=== PATIENT | female | born 1980 | race Caucasian/White ===

== ENCOUNTER → 2017-09-15 | Outpatient (CLI) | payer BC | END | disposition home or self-care (01) | LOC: KCIC MRI 07:46 | DX: M76.891 Other specified enthesopathies of right lower limb, excluding foot (principal) | CPT/HCPCS: 73721 ==

== ENCOUNTER → 2017-11-11 | Outpatient (CLI) | payer BC ==
[2017-11-11] MEDS: GADOBUTROL 7.5 MMOL/7.5 ML VIAL IV (11:10)
== END | disposition home or self-care (01) ==
LOC: KCIC MRI 09:20
DX: M48.02 Spinal stenosis, cervical region (principal); M51.24 Other intervertebral disc displacement, thoracic region
CPT/HCPCS: 70553; 72141; 72146; A9585

== ENCOUNTER → 2018-09-28 | Outpatient (CLI) | payer BC ==
[~2018-09-28] MED LIST: CETI10TA22 PO; PREN1TAB58 PO; VORT10TA PO
--- NOTE | 2018-09-28 13:55 | RAD ---
Bilateral breast ultrasound, 09/28/2018: History: Left breast lump The fibroglandular pattern in both breasts is heterogeneous. In the area of palpable concern in the left breast at the 2:00 location approximately 11 cm in the nipple there is a lobulated, slightly hypoechoic nodule. Some of its margins are difficult to separate from adjacent fibroglandular tissue. It is wider than tall and measures 10 x 11 x 4 mm. There is no significant posterior acoustic enhancement or shadowing. While this may be a patch of fibrous tissue, malignancy cannot be excluded. No other discrete nodule or fluid collection is seen in either breast. Left digital mammography, 09/28/2018: The patient's lower abdomen and pelvis were shielded with lead due to the given history of . The fibroglandular tissues are heterogeneously dense. On 2 of the images a radiopaque marker was placed on the skin surface overlying the area of palpable concern. On the straight mediolateral and oblique views there is a small underlying poorly defined opacity which probably corresponds to the nodule seen sonographically. It is obscured in the CC projection due to overlying dense fibroglandular shadows. No suspicious microcalcifications are evident. IMPRESSION: Mildly suspicious left breast nodule. Ultrasound-guided biopsy is suggested for further evaluation. BI-RADS 4-suspicious abnormality Note: The findings were discussed with the patient at the time of the exam and she is aware of our recommendation for ultrasound-guided biopsy.
== END | disposition home or self-care (01) ==
LOC: US 12:09
PROVIDERS: ATTEND Family Medicine
DX: N63.21 Unspecified lump in the left breast, upper outer quadrant (principal)
CPT/HCPCS: 76641; 77065

== ENCOUNTER → 2018-10-06 | Outpatient (CLI) | payer BC ==
[~2018-10-06] MED LIST changes: +LIDOCAINE 2%/EPI 1:100,000 20 ML VIAL. IJ ONE
--- NOTE | 2018-10-07 20:06 | PATHOLOGY ---
[facility] Accession Number: [id number] . 01 Material submitted: . breast - LEFT BREAST TISSUE, 2:00, 11CMFN. Modifiers: left, 2:00 . 01 Clinical history: . Left breast mass 2:00 11cm FN . 02 Diagnosis: Breast tissue, left breast mass 2:00 needle biopsies: - Mammary hamartoma. ([facility] 10/07/2018) QTP/10/07/2018 . 02 Comment: There is no evidence of malignancy. ([facility] 10/07/2018) . 02 Electronically signed: . Atilio Mike MD, Pathologist NPI- [id number] . 01 Gross description: . The specimen is received in formalin, labeled "Name, Lt Emilia breast 2:00" and consists of 9 needle cores of yellow tissue measuring between 1.5 cm and 2.0 cm in length and 0.2 cm each in diameter which are entirely submitted in A1-A3. The specimen was obtained at 10:29 AM on 10/06/2018 and placed in formalin at 10:32 AM. The cold ischemic time is 3 minutes and the total formalin fixation time is greater than 6 hours but less than 72 hours. ([facility]; 10/06/2018) SYU/SYU . 02 Pathologist provided ICD-10: Q85.9 . 02 CPT . 649798 Specimen Comment: A courtesy copy of this report has been sent to Specimen Comment: [phone], . Specimen Comment: Report sent to / DR HELLER Performed at: [address], [place], [place] [id number] MD Jay Jay Montes MD Phone: [phone] Performed at: [address] [id number] MD Atilio Mike MD Phone: [phone]
--- NOTE | 2018-10-17 12:29 | RAD ---
Ultrasound-guided left breast biopsy, 10/06/2018: History: Suspicious breast nodule Previous imaging demonstrated a suspicious superficial nodule at the 2:00 location in the left breast approximately 11 cm from the nipple. Under local anesthesia, aseptic conditions and sonographic guidance the [employer] [facility] biopsy instrument was passed into this process via a lateral approach. Multiple 12-gauge vacuum-assisted core samples were obtained and sent to pathology for evaluation. A biopsy marker was then deposited at the biopsy site. The biopsy instrument was removed and hemostasis obtained. The [facility] digital mammogram was obtained to document position of the biopsy marker. The patient's abdomen and pelvis were shielded with lead due to the patient's known . The patient tolerated the procedure well and left the department in good condition. The subsequent pathology report indicated the presence of a hamartoma with no evidence of malignancy.
== END | disposition home or self-care (01) ==
LOC: US 09:14
PROVIDERS: ATTEND Family Medicine
DX: N64.89 Other specified disorders of breast (principal); N63.20 Unspecified lump in the left breast, unspecified quadrant
CPT/HCPCS: 19083; 77065; 88305; C1713; 19085; 76942

== ENCOUNTER → 2020-09-11 | Outpatient (CLI) | payer BC, OTHER ==
[~2020-09-11] MED LIST changes: -CETI10TA22 PO; +CETI10TA74 PO; -LIDOCAINE 2%/EPI 1:100,000 20 ML VIAL. IJ ONE
--- NOTE | 2020-09-11 10:58 | KCIC ---
MR LUMBAR SPINE WO [id number] Date: 09/11/2020 8:35 AM Indication: LUMBAR RADICULOPATHY. LLE numbness, pain and weakness. LBP. Sx getting worse. New acute LBP one month ago after a lifting injury. Comparison: None. Technique: Multi-planar multi-weighted magnetic resonance imaging of the lumbar spine was performed w ithout intravenous contrast using the standard lumbar spine protocol. FINDINGS: The lumbar spine is normally aligned. No acute fracture. Mild multilevel degenerative disc desiccatio n and disc height loss. No marrow replacing process to suggest malignancy. The conus terminates at a normal level. No abnormal signal is seen within the visualized distal spina l cord. No clumping of intrathecal nerve roots. No soft tissue abnormality in the visualized abdomen or pelvis. T12-L1: No disc bulge. No facet arthropathy. No significant spinal stenosis or neural foraminal narro wing. L1-L2: No disc bulge. No facet arthropathy. No significant spinal stenosis or neural foraminal narrow ing. L2-L3: No disc bulge. No facet arthropathy. No significant spinal stenosis or neural foraminal narrow ing. L3-L4: No disc bulge. No facet arthropathy. No significant spinal stenosis or neural foraminal narrow ing. L4-L5: Disc bulge with annular tear and left paracentral inferiorly migrating extrusion which extends 5 mm below the disc space, narrows the left lateral recess, displaces the descending left L5 nerve r oot. No facet arthropathy. No significant spinal stenosis or neural foraminal narrowing. L5-S1: Disc bulge with annular tear. No facet arthropathy. No significant spinal stenosis. Mild left neural foraminal narrowing. IMPRESSION: Focal disc extrusion at L4-5 narrows the left lateral recess and displaces the descending left L5 ner ve root. Correlate for left L5 radiculopathy. Electronically signed by: Adam Gaston MD (09/11/2020 10:56 AM) [facility]
== END ==
LOC: KCIC MRI 08:27
PROVIDERS: ATTEND Family Medicine
DX: M51.37 Other intervertebral disc degeneration, lumbosacral region (principal); M48.07 Spinal stenosis, lumbosacral region; M54.16 Radiculopathy, lumbar region
CPT/HCPCS: 72148